=== PATIENT | female | born 1950 | race Two or more races ===

== ENCOUNTER 2023-02-07 20:54 | Inpatient (IN) | payer MEDICARE ==
[~2023-02-07] VITALS: Ht 162.6 cm; Wt 54.4 kg
[2023-02-07] MEDS ORDERED: ASPI-1420 PO (21:46)
[2023-02-07] MEDS ORDERED: CLIN300C12 PO (21:48)
[2023-02-07] MEDS ORDERED: POLY17PO4 PO (21:52)
[2023-02-07] MEDS ORDERED: AMLO-212 PO (21:59)
[2023-02-07] MEDS ORDERED: POTA10CA43 PO (22:00)
[2023-02-07] MEDS ORDERED: ZOLPIDEM TARTRATE 5 MG TABLET PO PRN (22:00)
[2023-02-07] MEDS ORDERED: ACETAMINOPHEN 325 MG TABLET PO PRN (22:00)
[2023-02-07] MEDS ORDERED: LORAZEPAM 1 MG TABLET PO PRN (22:00)
[2023-02-07] MEDS ORDERED: MAG HYDROX/AL HYDROX/SIMETH 30 ML UDC PO PRN (22:00)
[2023-02-07] MEDS ORDERED: FURO-144 PO (22:00)
[2023-02-07] MEDS ORDERED: MAGNESIUM HYDROXIDE 30 ML UDC PO PRN (22:00)
[2023-02-07] MEDS ORDERED: METO50TA16 PO (22:01)
[2023-02-07] MEDS ORDERED: MULT-754 PO (22:03)
[2023-02-07] MEDS ORDERED: ATOR20TA PO (22:03)
[2023-02-07] MEDS ORDERED: CHOL400T11 PO (22:06)
[2023-02-07] MEDS ORDERED: FERR325T23 PO (22:20)
[2023-02-07] MEDS ORDERED: POLYETHYLENE GLYCOL 3350 17 GM POWD.PACK PO PRN (22:30)
[2023-02-07] MEDS ORDERED: BLOOD SUGAR DIAGNOSTIC 1 EACH STRIP IN ONE (22:30)
[2023-02-07 23:52] VITALS: BP 146/57; TEMP 98.3
[2023-02-08 08:00] VITALS: BP 176/79; TEMP 98; O2SAT 98
[2023-02-08] MEDS: GLUCERNA SHAKE 237 ML CAN PO SCH ×2 (08:00→17:16)
[2023-02-08] MEDS: FERROUS SULFATE (325 MG) 325 MG/TAB TABLET PO SCH (09:00)
[2023-02-08] MEDS: FUROSEMIDE 40 MG TABLET PO SCH (09:00)
[2023-02-08] MEDS: AMLODIPINE BESYLATE 5 MG TABLET PO SCH (09:00)
[2023-02-08] MEDS: METOPROLOL TARTRATE 50 MG TABLET PO SCH ×2 (09:00→21:48)
[2023-02-08] MEDS: POTASSIUM CHLORIDE 10 MEQ TABLET.SA PO SCH (09:00)
[2023-02-08] MEDS: MULTIVITAMINS,THERAGRAN 1 UDTAB TABLET PO SCH (09:00)
[2023-02-08] MEDS: ASPIRIN EC 81 MG TABLET.DR PO SCH (09:00)
[2023-02-08] MEDS ORDERED: OLANZAPINE 10 MG VIAL IM ONE (11:00)
[2023-02-08 16:00] VITALS: BP 138/70; TEMP 97.9; O2SAT 100
[2023-02-08] MEDS ORDERED: CLONIDINE HCL 0.1MG/24H PTWK 1 EA PATCH TD SCH (16:00)
[2023-02-08] MEDS: OLANZAPINE ZYDIS 5 MG TAB.RAPDIS PO SCH (17:00)
[2023-02-08 20:43] VITALS: BP 147/59; TEMP 98.2; O2SAT 99
[2023-02-08] MEDS: ATORVASTATIN 10 MG TABLET PO SCH (21:48)
[2023-02-09 06:50] LABS: BASOPHILS % (AUTO) 0.5 % (0.0-2.0); EOSINOPHILS # (AUTO) 0.2 K/uL (0.0-0.7); EOSINOPHILS % (AUTO) 3.5 % (0.0-6.0); HEMATOCRIT 31 % (33-45); LYMPHOCYTES # (AUTO) 0.5 K/uL (0.8-4.8); LYMPHOCYTES % (AUTO) 9.6 % (20.0-44.0); MEAN CORPUSCULAR HEMOGLOBIN 26 PG (26.0-33.0); MEAN CORPUSCULAR HGB CONC 32 g/dl (31.0-36.0); MEAN CORPUSCULAR VOLUME 81 fL (82-100); MONOCYTES # (AUTO) 0.4 K/uL (0.1-1.30); MONOCYTES % (AUTO) 7.4 % (2.0-12.0); NEUTROPHILS # (AUTO) 4.5 K/uL (1.8-8.9); PLATELET COUNT (AUTO) 178 K/uL (150-450); RED BLOOD CELL COUNT(AUTO) 3.88 MIL/uL (4.0-5.2); RED CELL DISTRIBUTION WIDTH 13.4 % (11.5-15.0); WHITE BLOOD COUNT (AUTO) 5.7 K/uL (4.3-11.0)
[2023-02-09 08:00] VITALS: BP 167/83; TEMP 98.7; O2SAT 97
[2023-02-09 08:00] LABS: ALBUMIN 3.5 g/dL (3.4-5.0); BILIRUBIN,TOTAL 0.5 mg/dL (0.2-1.0); CALCIUM, SERUM 9.2 mg/dL (8.5-10.1); CREATININE 1.2 mg/dL (0.6-1.3); MAGNESIUM 2.3 mg/dL (1.8-2.4); PHOSPHORUS 3.6 mg/dL (2.5-4.9); POTASSIUM 3.9 mmol/L (3.5-5.1); TOTAL PROTEIN, SERUM 6.6 g/dL (6.4-8.2)
[2023-02-09] MEDS: GLUCERNA SHAKE 237 ML CAN PO SCH ×2 (08:00→17:00)
[2023-02-09 08:23] LABS: THYROID STIMULATING HORMONE 1.687 uIU/mL (0.358-3.74)
[2023-02-09] MEDS: FUROSEMIDE 40 MG TABLET PO SCH (09:00)
[2023-02-09] MEDS: POTASSIUM CHLORIDE 10 MEQ TABLET.SA PO SCH (09:00)
[2023-02-09] MEDS: ASPIRIN EC 81 MG TABLET.DR PO SCH (09:00)
[2023-02-09] MEDS: OLANZAPINE ZYDIS 5 MG TAB.RAPDIS PO SCH ×2 (09:00→17:00)
[2023-02-09] MEDS: AMLODIPINE BESYLATE 5 MG TABLET PO SCH (09:00)
[2023-02-09] MEDS: FERROUS SULFATE (325 MG) 325 MG/TAB TABLET PO SCH (09:00)
[2023-02-09] MEDS: METOPROLOL TARTRATE 50 MG TABLET PO SCH ×2 (09:00→21:00)
[2023-02-09] MEDS ORDERED: CHOLECALCIFEROL (VITAMIN D 3) 400 UNIT TABLET PO SCH (09:00)
[2023-02-09] MEDS: MULTIVITAMINS,THERAGRAN 1 UDTAB TABLET PO SCH (09:00)
[2023-02-09 16:00] VITALS: BP 176/86; TEMP 97.7; O2SAT 98
[2023-02-09 20:09] VITALS: BP 155/98; TEMP 99.5; O2SAT 100
[2023-02-09] MEDS: ATORVASTATIN 10 MG TABLET PO SCH (22:00)
[2023-02-09] MEDS ORDERED: CLONIDINE HCL 0.1MG/24H PTWK 1 EA PATCH TD ONE (22:14)
[2023-02-10] MEDS: GLUCERNA SHAKE 237 ML CAN PO SCH ×2 (08:00→16:36)
[2023-02-10] MEDS: ASPIRIN EC 81 MG TABLET.DR PO SCH (08:34)
[2023-02-10] MEDS: POTASSIUM CHLORIDE 10 MEQ TABLET.SA PO SCH (08:34)
[2023-02-10] MEDS: FUROSEMIDE 40 MG TABLET PO SCH (08:34)
[2023-02-10] MEDS: FERROUS SULFATE (325 MG) 325 MG/TAB TABLET PO SCH (08:34)
[2023-02-10] MEDS: METOPROLOL TARTRATE 50 MG TABLET PO SCH ×2 (08:34→21:00)
[2023-02-10] MEDS: AMLODIPINE BESYLATE 5 MG TABLET PO SCH (08:35)
[2023-02-10] MEDS: OLANZAPINE ZYDIS 5 MG TAB.RAPDIS PO SCH (08:35)
[2023-02-10] MEDS: MULTIVITAMINS,THERAGRAN 1 UDTAB TABLET PO SCH (08:35)
[2023-02-10 09:20] LABS: BASOPHILS % (AUTO) 0.6 % (0.0-2.0); EOSINOPHILS # (AUTO) 0.2 K/uL (0.0-0.7); HEMATOCRIT 35 % (33-45); HEMOGLOBIN 11.2 g/dL (11.5-14.8); LYMPHOCYTES # (AUTO) 0.8 K/uL (0.8-4.8); LYMPHOCYTES % (AUTO) 13.2 % (20.0-44.0); MEAN CORPUSCULAR HEMOGLOBIN 26 PG (26.0-33.0); MEAN CORPUSCULAR HGB CONC 32 g/dl (31.0-36.0); MEAN CORPUSCULAR VOLUME 81 fL (82-100); MONOCYTES # (AUTO) 0.4 K/uL (0.1-1.30); MONOCYTES % (AUTO) 6.9 % (2.0-12.0); NEUTROPHILS # (AUTO) 4.5 K/uL (1.8-8.9); NEUTROPHILS % (AUTO) 76.3 % (43.0-81.0); PLATELET COUNT (AUTO) 191 K/uL (150-450); RED BLOOD CELL COUNT(AUTO) 4.34 MIL/uL (4.0-5.2); RED CELL DISTRIBUTION WIDTH 13.7 % (11.5-15.0); WHITE BLOOD COUNT (AUTO) 5.8 K/uL (4.3-11.0)
[2023-02-10 09:42] LABS: CALCIUM, SERUM 9.5 mg/dL (8.5-10.1); POTASSIUM 3.7 mmol/L (3.5-5.1)
[2023-02-10] MEDS: diphenhydrAMINE HCL ELIX 25 MG/10 ML UDC PO SCH ×3 (10:00→17:00)
[2023-02-10] MEDS: HALOPERIDOL 5 MG TABLET PO SCH ×3 (10:00→17:00)
[2023-02-10] MEDS: HALOPERIDOL LACTATE INJ 5 MG/ML VIAL IM PRN ×2 (10:56→17:15)
[2023-02-10] MEDS: diphenhydrAMINE HCL 50 MG/ML VIAL IM PRN ×2 (10:57→17:14)
[2023-02-10 16:00] VITALS: BP 177/93; TEMP 98; O2SAT 100
[2023-02-10 20:24] VITALS: BP 153/73; TEMP 98.6; O2SAT 100
[2023-02-10] MEDS: ATORVASTATIN 10 MG TABLET PO SCH (21:28)
[2023-02-11 08:00] VITALS: BP 162/73; TEMP 97.7; O2SAT 96
[2023-02-11] MEDS: GLUCERNA SHAKE 237 ML CAN PO SCH ×2 (08:00→17:36)
[2023-02-11] MEDS: AMLODIPINE BESYLATE 5 MG TABLET PO SCH ×2 (09:00→09:05)
[2023-02-11] MEDS: HALOPERIDOL 5 MG TABLET PO SCH ×3 (09:00→17:36)
[2023-02-11] MEDS: METOPROLOL TARTRATE 50 MG TABLET PO SCH ×2 (09:05→21:05)
[2023-02-11] MEDS: diphenhydrAMINE HCL ELIX 25 MG/10 ML UDC PO SCH ×2 (09:06→17:36)
[2023-02-11] MEDS: FUROSEMIDE 40 MG TABLET PO SCH (09:06)
[2023-02-11] MEDS: FERROUS SULFATE (325 MG) 325 MG/TAB TABLET PO SCH (09:06)
[2023-02-11] MEDS: ASPIRIN EC 81 MG TABLET.DR PO SCH (09:06)
[2023-02-11] MEDS: MULTIVITAMINS,THERAGRAN 1 UDTAB TABLET PO SCH (09:06)
[2023-02-11] MEDS: POTASSIUM CHLORIDE 10 MEQ TABLET.SA PO SCH (09:06)
[2023-02-11] MEDS: HALOPERIDOL LACTATE INJ 5 MG/ML VIAL IM PRN (09:45)
[2023-02-11 16:00] VITALS: BP 148/89; TEMP 97.7; O2SAT 100
[2023-02-11 20:59] VITALS: BP 124/61; TEMP 98; O2SAT 99
[2023-02-11] MEDS: ATORVASTATIN 10 MG TABLET PO SCH (21:05)
[2023-02-12 08:00] VITALS: BP 156/62; TEMP 97.6; O2SAT 98
[2023-02-12] MEDS: ASPIRIN EC 81 MG TABLET.DR PO SCH (08:33)
[2023-02-12] MEDS: POTASSIUM CHLORIDE 10 MEQ TABLET.SA PO SCH (08:34)
[2023-02-12] MEDS: HALOPERIDOL 5 MG TABLET PO SCH ×2 (08:34→17:05)
[2023-02-12] MEDS: FERROUS SULFATE (325 MG) 325 MG/TAB TABLET PO SCH (08:34)
[2023-02-12] MEDS: FUROSEMIDE 40 MG TABLET PO SCH (08:34)
[2023-02-12] MEDS: diphenhydrAMINE HCL ELIX 25 MG/10 ML UDC PO SCH ×2 (08:34→17:05)
[2023-02-12] MEDS: METOPROLOL TARTRATE 50 MG TABLET PO SCH ×2 (08:35→20:57)
[2023-02-12] MEDS: MULTIVITAMINS,THERAGRAN 1 UDTAB TABLET PO SCH (08:35)
[2023-02-12] MEDS: AMLODIPINE BESYLATE 5 MG TABLET PO SCH (08:35)
[2023-02-12] MEDS: GLUCERNA SHAKE 237 ML CAN PO SCH ×2 (08:46→17:10)
[2023-02-12 16:00] VITALS: BP 145/75; TEMP 97.3; O2SAT 100
[2023-02-12] MEDS: ATORVASTATIN 10 MG TABLET PO SCH (20:57)
[2023-02-13 08:00] VITALS: BP 153/78; TEMP 97.9; O2SAT 100
[2023-02-13] MEDS: ASPIRIN EC 81 MG TABLET.DR PO SCH (10:13)
[2023-02-13] MEDS: FERROUS SULFATE (325 MG) 325 MG/TAB TABLET PO SCH (10:13)
[2023-02-13] MEDS: AMLODIPINE BESYLATE 5 MG TABLET PO SCH (10:14)
[2023-02-13] MEDS: FUROSEMIDE 40 MG TABLET PO SCH (10:14)
[2023-02-13] MEDS: diphenhydrAMINE HCL ELIX 25 MG/10 ML UDC PO SCH ×2 (10:15→16:36)
[2023-02-13] MEDS: METOPROLOL TARTRATE 50 MG TABLET PO SCH ×2 (10:15→21:51)
[2023-02-13] MEDS: POTASSIUM CHLORIDE 10 MEQ TABLET.SA PO SCH (10:15)
[2023-02-13] MEDS: MULTIVITAMINS,THERAGRAN 1 UDTAB TABLET PO SCH (10:15)
[2023-02-13] MEDS: GLUCERNA SHAKE 237 ML CAN PO SCH ×2 (10:32→17:45)
[2023-02-13] MEDS: HALOPERIDOL 5 MG TABLET PO SCH ×2 (10:33→16:36)
[2023-02-13 16:00] VITALS: BP 141/58; TEMP 98; O2SAT 100
[2023-02-13 20:22] VITALS: BP 150/62; TEMP 98; O2SAT 100
[2023-02-13] MEDS: ATORVASTATIN 10 MG TABLET PO SCH (21:55)
[2023-02-14 08:00] VITALS: BP 150/77; TEMP 98.7; O2SAT 100
[2023-02-14] MEDS: diphenhydrAMINE HCL ELIX 25 MG/10 ML UDC PO SCH ×2 (08:27→16:22)
[2023-02-14] MEDS: MULTIVITAMINS,THERAGRAN 1 UDTAB TABLET PO SCH (08:28)
[2023-02-14] MEDS: METOPROLOL TARTRATE 50 MG TABLET PO SCH ×2 (08:28→21:56)
[2023-02-14] MEDS: FUROSEMIDE 40 MG TABLET PO SCH (08:28)
[2023-02-14] MEDS: POTASSIUM CHLORIDE 10 MEQ TABLET.SA PO SCH (08:28)
[2023-02-14] MEDS: ASPIRIN EC 81 MG TABLET.DR PO SCH (08:28)
[2023-02-14] MEDS: HALOPERIDOL 5 MG TABLET PO SCH ×2 (08:28→16:22)
[2023-02-14] MEDS: FERROUS SULFATE (325 MG) 325 MG/TAB TABLET PO SCH (08:28)
[2023-02-14] MEDS: GLUCERNA SHAKE 237 ML CAN PO SCH ×2 (08:29→17:16)
[2023-02-14] MEDS: AMLODIPINE BESYLATE 5 MG TABLET PO SCH (08:31)
[2023-02-14 16:00] VITALS: BP 139/64; TEMP 97.4; O2SAT 98
[2023-02-14 20:16] VITALS: BP 135/58; TEMP 98.2; O2SAT 100
[2023-02-14] MEDS: ATORVASTATIN 10 MG TABLET PO SCH (21:56)
[2023-02-15 08:00] VITALS: BP 177/74; TEMP 97.8; O2SAT 95
[2023-02-15] MEDS: FERROUS SULFATE (325 MG) 325 MG/TAB TABLET PO SCH (08:28)
[2023-02-15] MEDS: AMLODIPINE BESYLATE 5 MG TABLET PO SCH (08:28)
[2023-02-15] MEDS: ASPIRIN EC 81 MG TABLET.DR PO SCH (08:28)
[2023-02-15] MEDS: HALOPERIDOL 5 MG TABLET PO SCH ×2 (08:28→16:48)
[2023-02-15] MEDS: FUROSEMIDE 40 MG TABLET PO SCH (08:29)
[2023-02-15] MEDS: POTASSIUM CHLORIDE 10 MEQ TABLET.SA PO SCH (08:29)
[2023-02-15] MEDS: MULTIVITAMINS,THERAGRAN 1 UDTAB TABLET PO SCH (08:29)
[2023-02-15] MEDS: METOPROLOL TARTRATE 50 MG TABLET PO SCH ×2 (08:30→21:22)
[2023-02-15] MEDS: GLUCERNA SHAKE 237 ML CAN PO SCH ×2 (08:30→16:49)
[2023-02-15] MEDS: diphenhydrAMINE HCL ELIX 25 MG/10 ML UDC PO SCH ×2 (08:31→16:48)
[2023-02-15 16:00] VITALS: BP 131/57; TEMP 98.1; O2SAT 98
[2023-02-15 20:35] VITALS: BP 160/72; TEMP 98.1; O2SAT 95
[2023-02-15] MEDS: ATORVASTATIN 10 MG TABLET PO SCH (21:21)
[2023-02-16 08:00] VITALS: BP 155/74; TEMP 98.2; O2SAT 98
[2023-02-16] MEDS: HALOPERIDOL 5 MG TABLET PO SCH ×2 (08:43→17:12)
[2023-02-16] MEDS: diphenhydrAMINE HCL ELIX 25 MG/10 ML UDC PO SCH ×2 (08:43→17:12)
[2023-02-16] MEDS: AMLODIPINE BESYLATE 5 MG TABLET PO SCH (08:43)
[2023-02-16] MEDS: FERROUS SULFATE (325 MG) 325 MG/TAB TABLET PO SCH (08:43)
[2023-02-16] MEDS: FUROSEMIDE 40 MG TABLET PO SCH (08:43)
[2023-02-16] MEDS: MULTIVITAMINS,THERAGRAN 1 UDTAB TABLET PO SCH (08:44)
[2023-02-16] MEDS: ASPIRIN EC 81 MG TABLET.DR PO SCH (08:44)
[2023-02-16] MEDS: POTASSIUM CHLORIDE 10 MEQ TABLET.SA PO SCH (08:44)
[2023-02-16] MEDS: GLUCERNA SHAKE 237 ML CAN PO SCH ×2 (08:44→17:12)
[2023-02-16] MEDS: METOPROLOL TARTRATE 50 MG TABLET PO SCH ×2 (09:06→21:07)
[2023-02-16] MEDS: LOSARTAN POTASSIUM 50 MG TABLET PO SCH (10:52)
[2023-02-16 16:00] VITALS: BP 126/68; TEMP 98.6; O2SAT 99
[2023-02-16 20:57] VITALS: BP 149/71; TEMP 98.4; O2SAT 100
[2023-02-16] MEDS: ATORVASTATIN 10 MG TABLET PO SCH (21:06)
[2023-02-17] MEDS: GLUCERNA SHAKE 237 ML CAN PO SCH ×2 (07:47→16:25)
[2023-02-17 08:00] VITALS: BP 147/63; TEMP 97.7; O2SAT 100
[2023-02-17] MEDS: FERROUS SULFATE (325 MG) 325 MG/TAB TABLET PO SCH (08:10)
[2023-02-17] MEDS: diphenhydrAMINE HCL ELIX 25 MG/10 ML UDC PO SCH ×2 (08:10→16:25)
[2023-02-17] MEDS: FUROSEMIDE 40 MG TABLET PO SCH (08:10)
[2023-02-17] MEDS: ASPIRIN EC 81 MG TABLET.DR PO SCH (08:10)
[2023-02-17] MEDS: MULTIVITAMINS,THERAGRAN 1 UDTAB TABLET PO SCH (08:10)
[2023-02-17] MEDS: LOSARTAN POTASSIUM 50 MG TABLET PO SCH (08:11)
[2023-02-17] MEDS: AMLODIPINE BESYLATE 5 MG TABLET PO SCH (08:11)
[2023-02-17] MEDS: HALOPERIDOL 5 MG TABLET PO SCH ×2 (08:11→16:25)
[2023-02-17] MEDS: POTASSIUM CHLORIDE 10 MEQ TABLET.SA PO SCH (08:12)
[2023-02-17] MEDS: METOPROLOL TARTRATE 50 MG TABLET PO SCH ×2 (08:12→21:20)
[2023-02-17] MEDS ORDERED: HALOPERIDOL DECANOATE IM 100 MG/ML AMPUL IM SCH (10:00)
[2023-02-17 16:02] VITALS: BP 120/58; TEMP 98; O2SAT 100
[2023-02-17] MEDS: BENZTROPINE MESYLATE (1 MG) 1 MG TABLET PO SCH (16:25)
[2023-02-17 20:00] VITALS: BP 141/62; TEMP 98.1; O2SAT 99
[2023-02-17] MEDS: ATORVASTATIN 10 MG TABLET PO SCH (21:19)
[2023-02-18 08:00] VITALS: BP 118/96; TEMP 97.8; O2SAT 100
[2023-02-18] MEDS: FERROUS SULFATE (325 MG) 325 MG/TAB TABLET PO SCH (09:35)
[2023-02-18] MEDS: POTASSIUM CHLORIDE 10 MEQ TABLET.SA PO SCH (09:35)
[2023-02-18] MEDS: diphenhydrAMINE HCL ELIX 25 MG/10 ML UDC PO SCH (09:35)
[2023-02-18] MEDS: ASPIRIN EC 81 MG TABLET.DR PO SCH (09:35)
[2023-02-18] MEDS: BENZTROPINE MESYLATE (1 MG) 1 MG TABLET PO SCH ×2 (09:37→16:45)
[2023-02-18] MEDS: METOPROLOL TARTRATE 50 MG TABLET PO SCH ×2 (09:37→21:20)
[2023-02-18] MEDS: AMLODIPINE BESYLATE 5 MG TABLET PO SCH (09:37)
[2023-02-18] MEDS: MULTIVITAMINS,THERAGRAN 1 UDTAB TABLET PO SCH (09:37)
[2023-02-18] MEDS: LOSARTAN POTASSIUM 50 MG TABLET PO SCH (09:37)
[2023-02-18] MEDS: FUROSEMIDE 40 MG TABLET PO SCH (09:38)
[2023-02-18] MEDS: HALOPERIDOL 5 MG TABLET PO SCH ×2 (09:38→16:45)
[2023-02-18] MEDS: GLUCERNA SHAKE 237 ML CAN PO SCH ×2 (09:39→17:23)
[2023-02-18 16:00] VITALS: BP 105/77; TEMP 98.8; O2SAT 100
[2023-02-18 20:00] VITALS: BP 124/57; TEMP 98.8; O2SAT 100
[2023-02-18] MEDS: ATORVASTATIN 10 MG TABLET PO SCH (21:17)
[2023-02-19 08:00] VITALS: BP 133/67; TEMP 97.9; O2SAT 100
[2023-02-19] MEDS: BENZTROPINE MESYLATE (1 MG) 1 MG TABLET PO SCH ×2 (08:57→17:08)
[2023-02-19] MEDS: HALOPERIDOL 5 MG TABLET PO SCH ×2 (08:57→17:08)
[2023-02-19] MEDS: ASPIRIN EC 81 MG TABLET.DR PO SCH (08:57)
[2023-02-19] MEDS: GLUCERNA SHAKE 237 ML CAN PO SCH ×2 (08:57→17:08)
[2023-02-19] MEDS: AMLODIPINE BESYLATE 5 MG TABLET PO SCH (08:58)
[2023-02-19] MEDS: FUROSEMIDE 40 MG TABLET PO SCH (08:58)
[2023-02-19] MEDS: POTASSIUM CHLORIDE 10 MEQ TABLET.SA PO SCH (08:58)
[2023-02-19] MEDS: MULTIVITAMINS,THERAGRAN 1 UDTAB TABLET PO SCH (08:58)
[2023-02-19] MEDS: FERROUS SULFATE (325 MG) 325 MG/TAB TABLET PO SCH (08:58)
[2023-02-19] MEDS: METOPROLOL TARTRATE 50 MG TABLET PO SCH ×2 (08:58→21:08)
[2023-02-19] MEDS: LOSARTAN POTASSIUM 50 MG TABLET PO SCH (09:03)
[2023-02-19 16:00] VITALS: BP 126/54; TEMP 98.4; O2SAT 98
[2023-02-19 20:00] VITALS: BP 124/56; TEMP 97.6; O2SAT 100
[2023-02-19] MEDS: ATORVASTATIN 10 MG TABLET PO SCH (21:45)
[2023-02-20 08:00] VITALS: BP 135/66; TEMP 98.6; O2SAT 94
[2023-02-20] MEDS: BENZTROPINE MESYLATE (1 MG) 1 MG TABLET PO SCH (08:22)
[2023-02-20] MEDS: GLUCERNA SHAKE 237 ML CAN PO SCH (08:22)
[2023-02-20] MEDS: MULTIVITAMINS,THERAGRAN 1 UDTAB TABLET PO SCH (08:23)
[2023-02-20] MEDS: HALOPERIDOL 5 MG TABLET PO SCH (08:23)
[2023-02-20] MEDS: POTASSIUM CHLORIDE 10 MEQ TABLET.SA PO SCH (08:23)
[2023-02-20] MEDS: LOSARTAN POTASSIUM 50 MG TABLET PO SCH (08:23)
[2023-02-20] MEDS: FERROUS SULFATE (325 MG) 325 MG/TAB TABLET PO SCH (08:23)
[2023-02-20] MEDS: FUROSEMIDE 40 MG TABLET PO SCH (08:23)
[2023-02-20] MEDS: ASPIRIN EC 81 MG TABLET.DR PO SCH (08:24)
[2023-02-20] MEDS: METOPROLOL TARTRATE 50 MG TABLET PO SCH (08:24)
[2023-02-20 08:25] VITALS: BP 135/66
[2023-02-20] MEDS: AMLODIPINE BESYLATE 5 MG TABLET PO SCH (08:25)
[2023-03-18] MEDS ORDERED: HALOPERIDOL DECANOATE IM 100 MG/ML AMPUL IM SCH (13:00)
== END 2023-02-20 13:35 | DRG 885 ==
LOC: GPS 20:54
PROVIDERS: ADMIT Psychiatry & Neurology Psychiatry; ATTEND Student in an Organized Health Care Education/Training Program
DX: F20.0 Paranoid schizophrenia (principal); Z59.00 Homelessness unspecified; G25.9 Extrapyramidal and movement disorder, unspecified; F29 Unspecified psychosis not due to a substance or known physiological condition; E78.5 Hyperlipidemia, unspecified; I10 Essential (primary) hypertension; Z20.822 Contact with and (suspected) exposure to COVID-19; Z89.612 Acquired absence of left leg above knee; F41.9 Anxiety disorder, unspecified; D50.9 Iron deficiency anemia, unspecified; S80.821A Blister (nonthermal), right lower leg, initial encounter; X58.XXXA Exposure to other specified factors, initial encounter; Y92.9 Unspecified place or not applicable; I87.8 Other specified disorders of veins; R60.9 Edema, unspecified
CPT/HCPCS: 36415; 80048-TC; 80053-TC; 80061-TC; 82962-TC; 83735-TC; 84100-TC; 84443-TC; 85025-TC; 87081-TC; J1200; J1630; J1631; J3490; Q0163

== ENCOUNTER 2023-09-17 13:17 | Inpatient (IN) | payer MEDICARE ==
[~2023-09-17] VITALS: Ht 165.1 cm; Wt 61.2 kg
[~2023-09-17 13:17] MED LIST: AMLO-212 PO; ASPI-1420 PO; ATOR20TA PO; CHOL400T11 PO; CLIN300C12 PO; FERR325T23 PO; FURO-144 PO; METO50TA16 PO; MULT-754 PO; POLY17PO4 PO; POTA10CA43 PO
[2023-09-17] MEDS: IV NS 0.9% 500 ML BAG IV ONE (13:36)
[2023-09-17 13:54] LABS: BASOPHILS # (AUTO) 0.1 K/uL (0.0-0.2); BASOPHILS % (AUTO) 0.7 % (0.0-2.0); EOSINOPHILS # (AUTO) 0.1 K/uL (0.0-0.7); EOSINOPHILS % (AUTO) 1.3 % (0.0-6.0); HEMATOCRIT 31 % (33-45); HEMOGLOBIN 10.3 g/dL (11.5-14.8); LYMPHOCYTES # (AUTO) 0.8 K/uL (0.8-4.8); LYMPHOCYTES % (AUTO) 12.2 % (20.0-44.0); MEAN CORPUSCULAR HEMOGLOBIN 27 PG (26.0-33.0); MEAN CORPUSCULAR HGB CONC 33 g/dl (31.0-36.0); MEAN CORPUSCULAR VOLUME 81 fL (82-100); MONOCYTES # (AUTO) 0.5 K/uL (0.1-1.30); MONOCYTES % (AUTO) 6.9 % (2.0-12.0); NEUTROPHILS # (AUTO) 5.4 K/uL (1.8-8.9); NEUTROPHILS % (AUTO) 78.9 % (43.0-81.0); PLATELET COUNT (AUTO) 189 K/uL (150-450); RED BLOOD CELL COUNT(AUTO) 3.87 MIL/uL (4.0-5.2); RED CELL DISTRIBUTION WIDTH 12.8 % (11.5-15.0); WHITE BLOOD COUNT (AUTO) 6.9 K/uL (4.3-11.0)
[2023-09-17] MEDS ORDERED: ACET325T53 PO (14:02)
[2023-09-17] MEDS ORDERED: CARB15DR EACHEYE (14:02)
[2023-09-17] MEDS ORDERED: AMLO-213 PO (14:02)
[2023-09-17] MEDS ORDERED: CHOL100062 PO (14:02)
[2023-09-17] MEDS ORDERED: HALO5TAB PO (14:02)
[2023-09-17] MEDS ORDERED: MAG30ORA PO (14:02)
[2023-09-17] MEDS ORDERED: LOSA50TA39 PO (14:02)
[2023-09-17] MEDS ORDERED: MAGN400O6 PO (14:02)
[2023-09-17] MEDS ORDERED: NUT.237L28 PO (14:02)
[2023-09-17 14:05] LABS: CALCIUM, SERUM 10.2 mg/dL (8.5-10.1); CREATININE 1.1 mg/dL (0.6-1.3); POTASSIUM 3.7 mmol/L (3.5-5.1)
[2023-09-17 14:16] LABS: APPEARANCE,URINE Slightly Cloudy (CLEAR); BILIRUBIN,URINE Negative (NEGATIVE); BLOOD, URINE Negative Ery/uL (NEGATIVE); COLOR,URINE YELLOW (YELLOW); KETONES,URINE Negative (NEGATIVE); LEUKOCYTE ESTERASE ,URINE Negative (NEGATIVE); NITRITE, URINE Positive (NEGATIVE); PROTEIN,URINE Negative (NEGATIVE); UGLUCOSE Negative (NEGATIVE); UROBILINOGEN,URINE 0.2 EU/dL (0.2)
[2023-09-17 14:20] LABS: THYROID STIMULATING HORMONE 0.73 uIU/mL (0.358-3.74)
[2023-09-17 14:25] LABS: ADD URINE CULTURE YES; BACTERIA,URINE 2+ /HPF (None Seen); RBC,URINE 0-2 /HPF (0-2); SQUAMOUS EPITHELIAL CELL,UR Few /HPF (None Seen); WBC,URINE 0-2 /HPF (0-3)
[2023-09-17] MEDS: CEFTRIAXONE 1GM BAG (ER ONLY) 1 GM/50 ML PIGGYBACK IV ONE (14:31)
[2023-09-17] MEDS ORDERED: MAG HYDROX/AL HYDROX/SIMETH 30 ML UDC PO PRN (15:30)
[2023-09-17] MEDS ORDERED: MAGNESIUM HYDROXIDE 30 ML UDC PO PRN (15:30)
[2023-09-17] MEDS ORDERED: HYDROCODONE/APAP 5/325MG TABLET PO PRN (15:30)
[2023-09-17] MEDS ORDERED: ACETAMINOPHEN 325 MG TABLET PO PRN (15:30)
[2023-09-17] MEDS ORDERED: Z GUARD REMEDY 4 OZ OINT TP PRN (15:30)
[2023-09-17] MEDS ORDERED: ONDANSETRON HCL/PF 4 MG/2 ML VIAL IVP PRN (15:30)
[2023-09-17] MEDS: IV NS 0.9% 1,000 ML IV PRN (18:03)
[2023-09-17 20:38] VITALS: BP 147/119; TEMP 98.4; O2SAT 98
[2023-09-18 07:04] LABS: BASOPHILS # (AUTO) 0.1 K/uL (0.0-0.2); EOSINOPHILS # (AUTO) 0.1 K/uL (0.0-0.7); EOSINOPHILS % (AUTO) 1.6 % (0.0-6.0); HEMATOCRIT 31 % (33-45); HEMOGLOBIN 10.3 g/dL (11.5-14.8); LYMPHOCYTES # (AUTO) 1.5 K/uL (0.8-4.8); LYMPHOCYTES % (AUTO) 25.1 % (20.0-44.0); MEAN CORPUSCULAR HEMOGLOBIN 27 PG (26.0-33.0); MEAN CORPUSCULAR HGB CONC 33 g/dl (31.0-36.0); MEAN CORPUSCULAR VOLUME 82 fL (82-100); MONOCYTES # (AUTO) 0.6 K/uL (0.1-1.30); MONOCYTES % (AUTO) 9.5 % (2.0-12.0); NEUTROPHILS # (AUTO) 3.7 K/uL (1.8-8.9); NEUTROPHILS % (AUTO) 62.8 % (43.0-81.0); PLATELET COUNT (AUTO) 160 K/uL (150-450); RED BLOOD CELL COUNT(AUTO) 3.81 MIL/uL (4.0-5.2); RED CELL DISTRIBUTION WIDTH 12.8 % (11.5-15.0); WHITE BLOOD COUNT (AUTO) 5.9 K/uL (4.3-11.0)
[2023-09-18 07:17] LABS: CALCIUM, SERUM 9.6 mg/dL (8.5-10.1); CREATININE 0.9 mg/dL (0.6-1.3); PHOSPHORUS 2.9 mg/dL (2.5-4.9); POTASSIUM 3.5 mmol/L (3.5-5.1)
[2023-09-18 08:36] VITALS: BP 136/66; TEMP 98.6; O2SAT 98
[2023-09-18] MEDS: PANTOPRAZOLE 40 MG TABLET.DR PO SCH (08:45)
[2023-09-18] MEDS ORDERED: MAG HYDROX/AL HYDROX/SIMETH 30 ML UDC PO PRN (11:00)
[2023-09-18] MEDS ORDERED: ACETAMINOPHEN 325 MG TABLET PO PRN (11:00)
[2023-09-18] MEDS ORDERED: MAGNESIUM HYDROXIDE 30 ML UDC PO PRN (11:00)
[2023-09-18] MEDS ORDERED: POLYETHYLENE GLYCOL 3350 17 GM POWD.PACK PO PRN (11:00)
[2023-09-18] MEDS: MULTIVITAMINS,THERAGRAN 1 UDTAB TABLET PO SCH (12:27)
[2023-09-18] MEDS: CHOLECALCIFEROL 1,000 UNIT TABLET (VIT D3) PO SCH (12:27)
[2023-09-18] MEDS: LOSARTAN POTASSIUM 50 MG TABLET PO SCH (12:28)
[2023-09-18] MEDS ORDERED: POLYVINYL ALCOHOL 15 ML BOTTLE EACHEYE PRN (13:00)
[2023-09-18] MEDS: CEFTRIAXONE 1 G in IV D5W 50 ML IV SCH (16:01)
[2023-09-18 16:19] VITALS: BP 115/82; TEMP 98.5; O2SAT 98
[2023-09-18] MEDS: GLUCERNA SHAKE 237 ML CAN PO SCH (16:25)
[2023-09-18] MEDS: HALOPERIDOL 5 MG TABLET PO SCH (16:26)
[2023-09-18 20:00] VITALS: BP 158/90; TEMP 97.9; O2SAT 98
[2023-09-18] MEDS: METOPROLOL TARTRATE 50 MG TABLET PO SCH (21:36)
[2023-09-18] MEDS: ATORVASTATIN 10 MG TABLET PO SCH (21:36)
[2023-09-19 08:00] VITALS: BP 146/110; TEMP 99.1; O2SAT 99
[2023-09-19] MEDS: ASPIRIN EC 81 MG TABLET.DR PO SCH (08:17)
[2023-09-19] MEDS: FERROUS SULFATE (325 MG) 325 MG/TAB TABLET PO SCH (08:17)
[2023-09-19] MEDS: AMLODIPINE BESYLATE 10 MG TABLET PO SCH (08:18)
[2023-09-19 16:00] VITALS: BP 148/110; TEMP 99.9; O2SAT 98
[2023-09-19 20:00] VITALS: BP 160/64; TEMP 98.1; O2SAT 99
[2023-09-20 08:56] VITALS: BP 130/78
[2024-08-22] MEDS ORDERED: CHOLECALCIFEROL (VITAMIN D 3) 400 UNIT TABLET PO SCH (11:00)
== END 2023-09-20 13:41 | DRG 689 ==
LOC: ER 13:31 → MED 16:29
PROVIDERS: ADMIT Nurse Practitioner Acute Care; ATTEND Nurse Practitioner Acute Care
DX: N39.0 Urinary tract infection, site not specified (principal); G92.8 Other toxic encephalopathy; F20.0 Paranoid schizophrenia; G25.9 Extrapyramidal and movement disorder, unspecified; E86.0 Dehydration; D50.9 Iron deficiency anemia, unspecified; E78.5 Hyperlipidemia, unspecified; E11.9 Type 2 diabetes mellitus without complications; D63.8 Anemia in other chronic diseases classified elsewhere; G89.29 Other chronic pain; I10 Essential (primary) hypertension; Z66 Do not resuscitate; Z90.710 Acquired absence of both cervix and uterus; Z79.899 Other long term (current) drug therapy; Z89.612 Acquired absence of left leg above knee; B96.20 Unspecified Escherichia coli [E. coli] as the cause of diseases classified elsewhere
CPT/HCPCS: 36415; 71045-TC; 80048-TC; 81001; 83735-TC; 84100-TC; 84443-TC; 85025-TC; 87081-TC; 87086-TC; 97110-TC; 97112-TC; 97530-TC; A4223; G0378; J0696; J7030; J7040; J7060